=== PATIENT | female | born 1945 | race Hispanic/Latino ===

== ENCOUNTER → 2019-09-09 | Outpatient (CLI) | payer OTHER | END | disposition home or self-care (01) | LOC: RAH 10:29 | PROVIDERS: ATTEND Internal Medicine | DX: R05 Cough (principal) | CPT/HCPCS: 71046 ==

== ENCOUNTER → 2022-11-01 | Outpatient (CLI) | payer MEDICARE | END | disposition home or self-care (01) | LOC: RAH 14:53 | PROVIDERS: ATTEND Nurse Practitioner Family | DX: J04.0 Acute laryngitis (principal); J06.9 Acute upper respiratory infection, unspecified; M47.815 Spondylosis without myelopathy or radiculopathy, thoracolumbar region | CPT/HCPCS: 71046 ==

== ENCOUNTER → 2025-05-21 | Outpatient (CLI) | payer MEDICARE ==
--- NOTE | 2025-05-21 16:06 | HMCIMG ---
EXAM: MR Brain without Intravenous Contrast. CLINICAL HISTORY: 79-year-old female with vertigo. TECHNIQUE: Magnetic resonance images of the brain without intravenous contrast in multiple planes. CONTRAST: None. COMPARISON: None provided. FINDINGS: BRAIN: No restricted diffusion to indicate acute infarction. No intracranial mass or hemorrhage. No midline shift or extra-axial fluid collection. No cerebellar tonsillar ectopia. No abnormal enhancement. The central arterial and venous flow voids are patent. Moderate cerebral and cerebellar atrophy. Mild chronic ischemic changes in the deep white matter. VENTRICLES: No hydrocephalus. ORBITS: The orbits are normal. SINUSES AND MASTOIDS: The sinuses and mastoid air cells are clear. BONES: No acute fracture or focal osseous lesion. IMPRESSION: 1. No acute intracranial abnormality. 2. Moderate cerebral and cerebellar atrophy. 3. Mild chronic ischemic changes in the deep white matter. EXAM: MR Internal Auditory Canals without Intravenous Contrast. CLINICAL HISTORY: 79-year-old female with vertigo. TECHNIQUE: Magnetic resonance images of the internal auditory canals without intravenous contrast in multiple planes. CONTRAST: NONE COMPARISON: None provided. FINDINGS: INTERNAL AUDITORY CANALS: No masses. The 7th and 8th cranial nerves are unremarkable. The internal auditory canals are patent. No abnormal enhancement. CEREBELLOPONTINE ANGLE CISTERNS: No mass or effacement. INNER EAR: Normal fluid signal within the cochlea, vestibule, and semicircular canals. BRAIN: The visualized brain and brainstem are unremarkable. MIDDLE EAR AND MASTOIDS: The visualized middle ear and mastoid air cells are clear. BONES: No focal osseous lesion. IMPRESSION: 1. No acute findings. [facility]
== END | disposition home or self-care (01) ==
LOC: RAH 12:09
PROVIDERS: ATTEND Internal Medicine
DX: I67.82 Cerebral ischemia (principal); G31.9 Degenerative disease of nervous system, unspecified; H81.392 Other peripheral vertigo, left ear; H91.8X2 Other specified hearing loss, left ear; R90.82 White matter disease, unspecified
CPT/HCPCS: 70551